=== PATIENT | female | born 1935 | race Caucasian/White ===

== ENCOUNTER 2018-08-29 14:49 | Outpatient (REF) | payer MEDICARE, SELFPAY | END 2018-08-29 15:09 | LOC: NCHCN 14:49 | PROVIDERS: PCP Family Medicine; Visit Provider Nurse Practitioner Family | DX: N39.0 Urinary tract infection, site not specified (principal) | CPT/HCPCS: 87077; 87086; 87186 ==

== ENCOUNTER 2018-09-20 16:32 | Outpatient (RCR) | payer MEDICARE, SELFPAY | END 2018-09-28 23:59 | disposition home or self-care (01) | LOC: NCHCN 16:32 | PROVIDERS: PCP Family Medicine; Visit Provider Nurse Practitioner Family | DX: N39.0 Urinary tract infection, site not specified (principal) | CPT/HCPCS: 87077; 87086; 87186 ==

== ENCOUNTER 2018-11-04 12:00 | Outpatient (REF) | payer MEDICARE, SELFPAY ==
[2018-11-04 21:46] LABS: HCT 34.9 % (36.0-46.0); HGB 10.8 g/dL (12.0-15.5); Mean Corp. HGB Concentration 30.9 g/dL (32.0-36.0); Mean Corpuscular Hemoglobin 30.4 pg (27.0-33.0); Mean Corpuscular Volume 98.3 fL (80-95); Mean Platelet Volume 12.3 fL (8.0-11.0); Platelet Count 174 x1000/uL (130-400); RBC 3.55 m/cumm (4.00-5.20); RBC Distribution Width 13.5 % (11.7-14.6); White Blood Cell Count 5.87 k/cumm (4.4-10.8)
[2018-11-04 22:06] LABS: Anion Gap 14.1 mmol/L (3-11); BUN 69 mg/dL (7-18); CO2 23.9 mmol/L (21.0-32.0); Calcium 9.1 mg/dL (8.5-10.1); Chloride 101 mmol/L (98-107); Glucose 111 mg/dL (70-100); NT-proBNP 20619 pg/mL; Potassium 3.8 mmol/L (3.5-5.1); Sodium 139 mmol/L (136-145)
[2018-11-04 22:25] LABS: CREATININE 4.25 mg/dL (0.55-1.02)
== END 2018-11-04 12:20 ==
LOC: NCHCN 12:00
PROVIDERS: PCP Family Medicine; Visit Provider Nurse Practitioner Family
DX: R06.00 Dyspnea, unspecified (principal); I50.9 Heart failure, unspecified; N18.5 Chronic kidney disease, stage 5
CPT/HCPCS: 80048; 85027; 83880